=== PATIENT | male | born 1985 | race Caucasian/White ===

== ENCOUNTER 2019-08-25 15:42 | Observation (INO) ==
[2019-08-25 16:25] LABS: Basophils # (auto) 0.03 K/uL (0-0.2); Basophils % (auto) 0.2 %; Eosinophils # (auto) 0.07 K/uL (0-0.5); Eosinophils % (auto) 0.4 %; Hematocrit (blood only) 47.5 % (42-52); Hemoglobin 16.6 g/dL (14.0-18.0); Immature Granulocytes # (auto) 0.05 K/uL (0.00-0.02); Immature Granulocytes % (auto) 0.3 %; Lymphocytes # (auto) 3.79 K/uL (1.2-3.4); Lymphocytes % (auto) 23.9 %; Mean Corpuscular Hemoglobin 31.1 pg (25-34); Mean Corpuscular Hgb Conc 34.9 g/dL (32-36); Mean Platelet Volume 9.1 fL (7.4-10.4); Monocytes # (auto) 1.22 K/uL (0.11-0.59); Monocytes % (auto) 7.7 %; Neutrophils # (auto) 10.68 K/uL (1.4-6.5); Neutrophils % (auto) 67.5 %; Platelet Count 298 K/uL (130-400); RDW Coefficient of Variation 12.9 % (11.5-14.5); RDW Standard Deviation 41.9 fL (36.4-46.3); Red Blood Count 5.34 M/uL (4.7-6.1); White Blood Count 15.84 K/uL (4.8-10.8)
[2019-08-25 16:48] LABS: Albumin Level 3.9 gm/dl (3.4-5.0); BUN Creatinine Ratio 17.4 (10-20); Calcium 9.2 mg/dl (8.5-10.1); Creatinine Clr Calc Pharmacy 119.7 ml/min; Est GFR (African American) 105.3; Est GFR (Non-African American) 90.9; Potassium 3.9 mmol/L (3.5-5.1)
[2019-08-25 16:51] LABS: Albumin Globulin Ratio 0.9 (0.9-2); Bilirubin,Total 0.8 mg/dl (0.2-1); Globulin 4.3 gm/dl (2.5-4.0); Total Protein 8.2 gm/dl (6.4-8.2)
[2019-08-25] MEDS ORDERED: IOVERSOL 100ml IV PRN (17:03)
--- NOTE | 2019-08-25 17:20 | CT Scan Report ---
CT abd pelvis IV con only CT DOSE: 1162.85 mGy.cm HISTORY: Pain. Mass. mid abdominal - hard mass, redness TECHNIQUE: Multiaxial CT images of the abdomen and pelvis were performed following the use of intrave nous contrast. A dose lowering technique was utilized adhering to the principles of ALARA. COMPARISON STUDY: None. FINDINGS: Anterior ventral periumbilical hernia. This is a maximum transaxial measurements of 4.2 cm. There is contained fat. Fat demonstrates increased density with evidence for surrounding infiltrative change of the surrounding subcutaneous fat. There this is evidence of an incarcerated fat containing hernia. No definite bowel containment. Bowel pattern overall is nonobstructive. Liver spleen and pancreas are unremarkable. Kidneys negative for hydronephrosis. The appendix is norm al. No significant abdominal pelvic or inguinal adenopathy. IMPRESSION: 1. Periumbilical incarcerated fat containing hernia. 2. Surrounding cellulitis and/or reactive infiltrative change of the subcutaneous fat. 3. No evidence for drainable abscess or collection. 4. Study is otherwise unremarkable. ACT 112: Negative or not required by law. The above report was generated using voice recognition software. It may contain grammatical, syntax or spelling errors. Electronically signed by: Viktor Cabrera M.D. 08/25/2019 5:19 PM
[2019-08-25 17:26] LABS: Appearance Urine Clear (Clear); Bilirubin Urine Negative (Negative); Blood Urine Negative (Negative); Color Urine Dark Yellow; Glucose Urine UA Negative (Negative); Ketones Urine 1+ (Negative); Leukocyte Esterase Urine Negative (Negative); Nitrite Urine Negative (Negative); Protein Urine Negative (Negative); Specific Gravity Urine 1.029 (1.000-1.030); Urobilinogen Urine Negative (Negative)
[2019-08-25] MEDS ORDERED: PIPERACILLIN/TAZOBACTAM 3.375 GM in DEXTROSE 5% 100 ML/100 ML BAG IV STA (17:29)
[2019-08-25] MEDS ORDERED: PIPERACILL/TAZOBAC CONSULT ACTIVE PRN (17:29)
--- NOTE | 2019-08-25 18:26 | Surgery Consultation ---
Date of Consultation August 25, 2019 Assessment & Plan (1) Incarcerated ventral hernia: pt is a 34 year-old male who presents to ER with one day history abdominal pain, IMP: incarcerated ventral hernia with cellulitis PLan, I recommend to do open repair incarcerated ventral hernia, possible mesh, D/W benefits, risks and alternatives of the surgery, the risks - infection, bleeding, hernia recurrence, complications relate to mesh, may need bowel resection, pt understood, he agrees with the surgery, I answered all questions, pre-op antibiotic (2) Cellulitis: History of Present Illness History of Present Illness CC: abdominal pain HPI: pt is a 34 year-old male who presents to ER with one day history acute abdominal pain with bulging on abdominal wall, pt had ventral hernia about 10 years, the hernia is getting bigger, now pt has skin redness around the hernia, with bulging is not reducible, the pain is 5/10, pt denies fever, no nausea, no vomiting, Allergies Allergy/AdvReac Type Severity Reaction Status Date / Time No Known Allergies Allergy Unverified 08/25/19 16:35 Home Medications Home Medications Medication Instructions Recorded Confirmed Type No Known Home Medications 08/25/19 08/25/19 History Patient History Social History Feels Safe at Home: Yes Smoking Status: Current every day smoker Review of Systems Review of Systems: All systems reviewed & are unremarkable except as noted in HPI & below Constitutional: as per Subjective / HPI obesity Eyes: as per Subjective / HPI Ear, Nose, Mouth, Throat: as per Subjective / HPI Respiratory: as per Subjective / HPI Cardiovascular: as per Subjective / HPI Gastrointestinal: as per Subjective / HPI Genitourinary: + as per Subjective / HPI Musculoskeletal: as per Subjective / HPI Integumentary: as per Subjective / HPI Neurologic: as per Subjective / HPI Psychiatric: as per Subjective / HPI Endocrine: as per Subjective / HPI Hematologic / Lymphatic: as per Subjective / HPI Physical Exam Constitutional: WD/WN, vitals as above well developed and well nourished Eyes: PERRL, conjunctivae normal, anicteric sclerae ENMT: external ear and nose normal, oropharynx normal Neck: trachea midline, no thyromegaly Respiratory: normal respiratory effort, lungs clear to auscultation normal respiratory effort Cardiovascular: RRR, no murmur, no edema Rate/Rhythm: regular rate and regular rhythm Heart Sounds: normal S1 and normal S2 Gastrointestinal (Abdomen): tenderness with bulging just above the umbilical, with redness cellulitis, size about [id number], BS +, the hernia is not reducible Musculoskeletal: no cyanosis or clubbing, extremities motor strength 5/5 Skin: abdominal wall skin is redness, size [id number] Neurologic: patellar DTR's 2+ bilat, sensation intact Psychiatric: Orientation: alert and oriented x 3 Results & Data Vital Signs (Past 12 Hours) Vital Signs Temp Pulse Pulse Resp BP BP Pulse Ox 08/25/19 17:43 110 H 20 124/84 96 08/25/19 15:50 37.5 C 112 H 20 140/81 96 Laboratory Results Abnormal lab results 08/25/19 08/25/19 08/25/19 Range/Units 16:16 16:16 17:12 WBC 15.84 H (4.8-10.8) K/uL Neut # (Auto) 10.68 H (1.4-6.5) K/uL Lymph # (Auto) 3.79 H (1.2-3.4) K/uL [place] # (Auto) 1.22 H (0.11-0.59) K/uL Immature Gran # (Auto) 0.05 H (0.00-0.02) K/uL Globulin 4.3 H (2.5-4.0) gm/dl Urine Ketones 1+ H (Negative) Diagnostic Findings CT abd pelvis IV con only CT DOSE: 1162.85 mGy.cm HISTORY: Pain. Mass. mid abdominal - hard mass, redness TECHNIQUE: Multiaxial CT images of the abdomen and pelvis were performed following the use of intravenous contrast. A dose lowering technique was utilized adhering to the principles of ALARA. COMPARISON STUDY: None. FINDINGS: Anterior ventral periumbilical hernia. This is a maximum transaxial measurements of 4.2 cm. There is contained fat. Fat demonstrates increased density with evidence for surrounding infiltrative change of the surrounding subcutaneous fat. There this is evidence of an incarcerated fat containing hernia. No definite bowel containment. Bowel pattern overall is nonobstructive. Liver spleen and pancreas are unremarkable. Kidneys negative for hydronephrosis. The appendix is normal. No significant abdominal pelvic or inguinal adenopathy. IMPRESSION: 1. Periumbilical incarcerated fat containing hernia. 2. Surrounding cellulitis and/or reactive infiltrative change of the subcutaneous fat. 3. No evidence for drainable abscess or collection. 4. Study is otherwise unremarkable.
[2019-08-25] MEDS ORDERED: CEFAZOLIN 2000MG 2,000 MG/15 ML SYR IV ONE (18:30)
--- NOTE | 2019-08-25 18:30 | History & Physical Bridge Note ---
Date of Service August 25, 2019 History & Physical Bridge Note I have examined the patient, reviewed the History & Physical and in the interval since the performance of the History & Physical I have noted the following changes of clinical significance: no changes noted
[2019-08-25] MEDS ORDERED: LIDOCAINE HCL 1% 20 ML VIAL ONE (18:33)
[2019-08-25] MEDS ORDERED: BUPIVACAINE 0.5 % 5 MG/1 ML MPF 30ML VIAL ONE (18:33)
[2019-08-25] MEDS ORDERED: BACITRACIN OINT 15 GM TUBE ONE (18:33)
[2019-08-25] MEDS ORDERED: LIDOCAINE HCL 2% 2 ML VIAL/AMP(20MG/ML) INFIL ONE (21:22)
[2019-08-25] MEDS ORDERED: PROPOFOL IV EMULSION 10 MG/ML 20 ML VIAL IV ONE ×2 (21:22→22:00)
[2019-08-25] MEDS ORDERED: ROCURONIUM BROMIDE 10 MG/ML 5 ML VIAL IV ONE (21:22)
[2019-08-25] MEDS ORDERED: NEOSTIGMINE METHYLSULFATE 5 MG/5 ML SYR ONE (21:22)
[2019-08-25] MEDS ORDERED: SUCCINYLCHOLINE CHLORIDE 20 MG/ML 10 ML VIAL IV ONE (21:22)
[2019-08-25] MEDS ORDERED: GLYCOPYRROLATE 0.2 MG/ML VIAL ONE (21:22)
[2019-08-25] MEDS ORDERED: fentaNYL citrate 100 MCG/2 ML VIAL ONE (21:22)
[2019-08-25] MEDS ORDERED: DEXAMETHASONE SOD INJ 4 MG/ML VIAL ONE (21:22)
[2019-08-25] MEDS ORDERED: ONDANSETRON INJ 2 MG/ML 2 ML VIAL ONE (21:22)
[2019-08-25] MEDS ORDERED: MIDAZOLAM HCL 1 MG/ML 2ML VIAL ONE (21:22)
--- NOTE | 2019-08-25 21:40 | Anesthesiology Consultation ---
Date of Service August 25, 2019 Assessment & Plan (1) Encounter for pre-operative examination: Chart Review Chart Review: Acceptable Risk for Surgery and Patient NOT seen in Pre Admission Testing Consults Requested none ASA [id number] Proposed Anesthesia Anesthesia Type: General Risk / Benefits Reviewed With: PT / POA / Parent / Guardian, Accepts Plan and I nformed Consent Obtained History Surgery Operation Date: 08/25/19 19:15 Proposed Procedures p Ventral Hernia Repair - Sabina Keita MD Height/Weight Height: 5 ft 9 in Weight: 111.5 kg Allergies Allergy/AdvReac Type Severity Reaction Status Date / Time No Known Allergies Allergy Unverified 08/25/19 16:35 Medications Home Medications Medication Instructions Recorded Confirmed Last Taken No Known Home Medications 08/25/19 08/25/19 Unknown Active Medications Generic Name Dose Route Start Last Admin Trade Name Freq PRN Reason Stop Dose Admin Ioversol 90 ml 08/25/19 17:03 08/25/19 17:04 Optiray 320 100ml IV 08/29/19 17:02 90 ml ONCE PRN Administration Interaction Checking NPO Date Last Intake of Fluids: 08/25/19 Time Last Intake of Fluids: 15:50 Last Intake of Fluids Comment: sips of water Date Last Intake of Solids: 08/25/19 Time Last Intake of Solids: 12:30 Last Intake of Solids Comment: wrap from sheetz Exercise / Class Metabolic Activity II 4-5 Yardwork/Stairs/Walk up hill Past Anesthesia History No Hx of Anesthesia Complications and No Family Hx of Anesthesia Complications History of PONV No Hx of PONV and No Hx of Motion Sickness Social History Smoking Status: Current every day smoker Physical Exam Vital Signs Last Vital Signs Temp 37.3 C 08/25/19 20:03 Pulse 103 H 08/25/19 19:11 Resp 20 08/25/19 19:11 BP 121/81 08/25/19 19:11 Pulse Ox 97 08/25/19 19:01 ENMT Mouth: no dentition abnormality Thyromental Distance: > or= 3.5 Finger Breadths Mallampati Class: II Neck normal visual inspection Respiratory normal respiratory effort Auscultation: lungs clear to auscultation bilaterally Cardiovascular Rate/Rhythm: regular rate and regular rhythm Psychiatric Orientation: alert Testing Laboratory Results 08/25/19 16:16 08/25/19 16:16 Urine Color Dark Yellow 08/25/19 17:12 Urine Appearance Clear (Clear) 08/25/19 17:12 Urine pH 6.0 (4.5-7.5) 08/25/19 17:12 Ur Specific [place] 1.029 (1.000-1.030) 08/25/19 17:12 Urine Protein Negative (Negative) 08/25/19 17:12 Urine Glucose (UA) Negative (Negative) 08/25/19 17:12 Urine Ketones 1+ (Negative) H 08/25/19 17:12 Urine Nitrite Negative (Negative) 08/25/19 17:12 Ur Leukocyte Esterase Negative (Negative) 08/25/19 17:12
[2019-08-25] MEDS ORDERED: fentaNYL citrate 100 MCG/2 ML VIAL IV PRN (23:11)
[2019-08-25] MEDS ORDERED: ONDANSETRON INJ 2 MG/ML 2 ML VIAL IV PRN ×2 (23:11→23:15)
[2019-08-25] MEDS ORDERED: HYDROmorphone INJ 2 MG/ML SYR/VIAL IV PRN (23:11)
[2019-08-25] MEDS ORDERED: ATROPINE SULFATE 0.1 MG/ML 10ML SYR IV PRN (23:11)
[2019-08-25] MEDS ORDERED: ePHEDrine sulfate 50 MG/ML AMP IV PRN (23:11)
[2019-08-25] MEDS ORDERED: PROMETHAZINE HCL 6.25 MG in SODIUM CHLORIDE 0.9% 50 ML IV PRN (23:11)
--- NOTE | 2019-08-25 23:13 | Post Operative Brief Note ---
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
--- NOTE | 2019-08-25 23:31 | Anesthesiology Progress Note ---
Date of Service August 25, 2019 Anesthesia Post Procedure Vital Signs Vital Signs: Temp Pulse Pulse Pulse Resp BP BP 08/25/19 20:03 37.3 C 08/25/19 19:11 38.1 C H 103 H 20 121/81 08/25/19 19:01 98 H 16 134/81 08/25/19 19:00 98 H 16 134/81 08/25/19 17:43 110 H 20 124/84 08/25/19 15:50 37.5 C 112 H 20 140/81 Pulse Ox 08/25/19 20:03 08/25/19 19:11 08/25/19 19:01 97 08/25/19 19:00 97 08/25/19 17:43 96 08/25/19 15:50 96 Pain Intensity Abdomen: Pain Intensity: 1 Transfer of Care Handoff Completed per policy Notes Mental Status: alert / awake / arousable Patient Amnestic to Procedure: Yes Nausea / Vomiting: adequately controlled Pain: adequately controlled Airway Patency, RR, SpO2: stable & adequate BP & HR: stable & adequate Hydration State: stable & adequate Anesthetic Complications: no major complications apparent
--- NOTE | 2019-08-25 23:57 | Emergency Department Note ---
History of Present Illness General Chief complaint: Abdominal Pain Stated complaint: ABD REDNESS - HERNIA? Time Seen by Provider: 08/25/19 15:54 Source: patient Mode of arrival: ambulatory Limitations: no limitations History of Present Illness Maximum Pain Intensity: 5 This patient is a 34-year-old male who presents to the emergency department for evaluation of abdominal redness/skin changes. Patient reports that he has had a hernia for the past 2 years. He reports that he has pain in it occasionally but has not had this evaluated for treatment. He states that last night, he stood up and the area became hard to touch. His girlfriend looked at the area and noticed that it was red. He reports that he is not having any pain or other symptoms at this time. No nausea or vomiting. He denies any other medical problems. 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 Beliefs That Will Affect Care: None Current Living Situation: Alone Other Information That Helps Us Care for You: No Feels Safe at Home: Yes Safety Concerns: Feels Safe At This Time Smoking Status: Current every day smoker Tobacco Type: cigarettes ; Cigarettes Per Day: 1 pack ; Do You Dip or Chew Tobacco: No ; Second Hand Exposure: Yes ; Tobacco Cessation Education Requested by Patient: No Hx Alcohol Use: Yes Alcohol type: hard liquor Hx Substance Use: No Review of Systems A total of 10 systems reviewed and were otherwise negative Physical Exam Vital Signs Vital Signs - 24 hr 08/25/19 15:50 08/25/19 17:43 08/25/19 19:00 Temperature 37.5 C Temperature Source Oral Pulse Rate 112 H Pulse Rate [Left Finger] Pulse Rate [Radial] 110 H 98 H Pulse Rhythm [Left Finger] Pulse Rhythm [Radial] Regular Regular Pulse Strength [Left Finger] Respiratory Rate 20 20 16 Respiratory Effort / Characteristics Non-Labored Spontaneous Non-Labored Spontaneous Non-Labored Spontaneous Respiratory Depth Normal Normal Normal Respiratory Pattern Regular Regular Regular Blood Pressure 140/81 Blood Pressure [Right Arm] 124/84 134/81 Blood Pressure Mean 100 Blood Pressure Mean [Right Arm] 97 98 Blood Pressure Position [Right Arm] Pulse Oximetry 96 96 97 Oxygen Delivery Method Room Air Room Air Room Air Oxygen Flow Rate Sepsis Recent Fever Within 48 Hours No Sepsis New/Unexplained Change in Mental Status No Sepsis Action Taken by Nursing No Action Required 08/25/19 19:01 08/25/19 19:11 08/25/19 20:03 Temperature 38.1 C H 37.3 C Temperature Source Oral Oral Pulse Rate 98 H Pulse Rate [Left Finger] 103 H Pulse Rate [Radial] Pulse Rhythm [Left Finger] Pulse Rhythm [Radial] Pulse Strength [Left Finger] Normal Respiratory Rate 16 20 Respiratory Effort / Characteristics Non-Labored Spontaneous Respiratory Depth Normal Respiratory Pattern Regular Blood Pressure 134/81 Blood Pressure [Right Arm] 121/81 Blood Pressure Mean Blood Pressure Mean [Right Arm] 94 Blood Pressure Position [Right Arm] Sitting Pulse Oximetry 97 Oxygen Delivery Method Room Air Room Air Oxygen Flow Rate Sepsis Recent Fever Within 48 Hours Sepsis New/Unexplained Change in Mental Status Sepsis Action Taken by Nursing 08/25/19 23:27 08/25/19 23:38 08/25/19 23:47 Temperature 36.2 C L 36.0 C L 36.4 C L Temperature Source Temporal Artery Scan Temporal Artery Scan Temporal Artery Scan Pulse Rate Pulse Rate [Left Finger] 93 H 90 87 Pulse Rate [Radial] Pulse Rhythm [Left Finger] Regular Regular Regular Pulse Rhythm [Radial] Pulse Strength [Left Finger] Normal Normal Normal Respiratory Rate 16 16 14 Respiratory Effort / Characteristics Non-Labored Non-Labored Non-Labored Respiratory Depth Normal Normal Normal Respiratory Pattern Blood Pressure Blood Pressure [Right Arm] 117/77 122/65 125/68 Blood Pressure Mean Blood Pressure Mean [Right Arm] 90 84 87 Blood Pressure Position [Right Arm] Lying Lying Lying Pulse Oximetry 95 95 96 Oxygen Delivery Method Nasal Cannula Nasal Cannula Nasal Cannula Oxygen Flow Rate 4 2 2 Sepsis Recent Fever Within 48 Hours Sepsis New/Unexplained Change in Mental Status Sepsis Action Taken by Nursing VITALS: Vitals are noted on the nurse's note and reviewed by myself. Vital signs stable. GENERAL: This is a 34-year-old male, in no acute distress, nondiaphoretic, well- developed well-nourished. SKIN: There is a large area of erythema overlying the mid abdomen. EARS: External auditory canals clear, tympanic membranes pearly [place] without erythema or effusion bilaterally. EYES: Pupils equal round and reactive to light and accommodation. MOUTH: Mucous membranes moist. Tonsils are not enlarged. Pharynx without erythema or exudate. NECK: Supple without nuchal rigidity. No lymphadenopathy. HEART: Regular rate and rhythm without murmurs gallops or rubs. LUNGS: Clear to auscultation bilaterally without wheezes, rales or rhonchi. ABDOMEN: Positive bowel sounds x 4. Abdomen is soft and nontender to palpation. There is a hard mass superior to the umbilicus which is nontender to palpation. There is erythema overlying this area and the surrounding skin. No guarding or rebound tenderness. NEURO: Patient was alert and oriented to person place and time. Course Consultations Consultation #1: Dr. Keita - general surgery Administered Medications Discontinued Medications Bacitracin (Bacitracin) Confirm Administered Dose 45 appln .ROUTE .STK-MED ONE Stop: 08/25/19 18:34 Last Admin: 08/25/19 23:08 Dose: 45 appln Documented by: [id number] Bupivacaine HCl (Marcaine 0.5% Mpf) Confirm Administered Dose 30 ml .ROUTE .STK- MED ONE Stop: 08/25/19 18:34 Last Admin: 08/25/19 22:45 Dose: 20 ml Documented by: [id number] Docusate Sodium (Colace) 100 mg PO DAILY LUZ Stop: 09/25/19 08:59 Last Admin: 08/26/19 09:40 Dose: 100 mg Documented by: [id number] Hydromorphone HCl (Dilaudid) 0.5 mg IV Q5M PRN PRN Reason: PACU Use Only-Pain Stop: 08/26/19 07:11 Last Admin: 08/25/19 23:41 Dose: 0.5 mg Documented by: [id number] Piperacillin Sod/Tazobactam (Sod 3.375 gm/ Dextrose) 100 ml in 115 mls @ 230 mls/hr IV NOW STA Stop: 08/25/19 17:58 Last Infusion: 08/25/19 18:39 Dose: 0 mls/hr Documented by: [id number] Admin: 08/25/19 17:53 Dose: 230 mls/hr Documented by: [id number] Cefazolin Sodium (Ancef 2000mg) 2,000 mg in 15 mls @ 3.75 mls/min IV PREOP ONE Stop: 08/25/19 18:33 Last Admin: 08/25/19 21:49 Dose: 3.75 mls/min Documented by: [id number] Lactated Ringer's (Lr) 1,000 mls @ 80 mls/hr IV .[id number] LUZ Stop: 09/25/19 00:12 Last Infusion: 08/26/19 11:35 Dose: 0 mls/hr Documented by: [id number] Admin: 08/26/19 00:56 Dose: 80 mls/hr Documented by: [id number] Piperacillin Sod/Tazobactam (Sod 4.5 gm/ Dextrose) 120 mls @ 200 mls/hr IV NOW ONE; Protocol Stop: 08/26/19 01:35 Last Infusion: 08/26/19 01:32 Dose: 0 mls/hr Documented by: [id number] Admin: 08/26/19 00:56 Dose: 200 mls/hr Documented by: [id number] Piperacillin Sod/Tazobactam (Sod 4.5 gm/ Dextrose) 120 mls @ 30 mls/hr IV Q8H [facility]; Protocol Stop: 09/05/19 05:59 Last Infusion: 08/26/19 08:55 Dose: 0 mls/hr Documented by: [id number] Admin: 08/26/19 05:17 Dose: 30 mls/hr Documented by: [id number] Ioversol (Optiray 320 100ml) 90 ml IV ONCE PRN PRN Reason: Interaction Checking Stop: 08/29/19 17:02 Last Admin: 08/25/19 17:04 Dose: 90 ml Documented by: [id number] Lidocaine HCl (Xylocaine 1% (Local)) Confirm Administered Dose 20 ml .ROUTE .STK-MED ONE Stop: 08/25/19 18:34 Last Admin: 08/25/19 22:45 Dose: 20 ml Documented by: [id number] Medical Decision Making Differential Diagnosis Differential diagnosis includes appendicitis, diverticulitis, bowel obstruction, inflammatory bowel disease, renal colic, PUD, biliary pathology, pancreatitis, mesenteric ischemia, aortic pathology, infection, genitourinary, UTI, perforated viscus, among others. Home Medications Current Medication List: was personally reviewed by me Laboratory Data Attestation: I reviewed the patient's lab results. Result diagrams: 08/26/19 05:24 08/26/19 05:24 Lab Results 08/25/19 08/25/19 08/25/19 Range/Units 16:16 16:16 17:12 WBC 15.84 H (4.8-10.8) K/uL RBC 5.34 (4.7-6.1) M/uL Hgb 16.6 (14.0-18.0) g/dL Hct 47.5 (42-52) % MCV 89.0 (80-100) fL MCH 31.1 (25-34) pg MCHC 34.9 (32-36) g/dL RDW Std Deviation 41.9 (36.4-46.3) fL RDW Coeff of Karen 12.9 (11.5-14.5) % Plt Count 298 (130-400) K/uL MPV 9.1 (7.4-10.4) fL Immature Gran % (Auto) 0.3 % Neut % (Auto) 67.5 % Lymph % (Auto) 23.9 % [place] % (Auto) 7.7 % Eos % (Auto) 0.4 % Baso % (Auto) 0.2 % Neut # (Auto) 10.68 H (1.4-6.5) K/uL Lymph # (Auto) 3.79 H (1.2-3.4) K/uL [place] # (Auto) 1.22 H (0.11-0.59) K/uL Eos # (Auto) 0.07 (0-0.5) K/uL Baso # (Auto) 0.03 (0-0.2) K/uL Immature Gran # (Auto) 0.05 H (0.00-0.02) K/uL Sodium 139 (136-145) mmol/L Potassium 3.9 (3.5-5.1) mmol/L Chloride 106 (98-107) mmol/L Carbon Dioxide 28 (21-32) mmol/L Anion Gap 5.0 (3-11) BUN 18 (7-18) mg/dl Creatinine 1.05 (0.6-1.4) mg/dl Est Cr Clr Drug Dosing 119.7 ml/min Est GFR ( Amer) 105.3 Est GFR (Non-Af Amer) 90.9 BUN/Creatinine Ratio 17.4 (10-20) Glucose 95 (70-99) mg/dl Calcium 9.2 (8.5-10.1) mg/dl Total Bilirubin 0.8 (0.2-1) mg/dl AST 20 (15-37) U/L ALT 44 (12-78) U/L Alkaline Phosphatase 92 (45-117) U/L Total Protein 8.2 (6.4-8.2) gm/dl Albumin 3.9 (3.4-5.0) gm/dl Globulin 4.3 H (2.5-4.0) gm/dl Albumin/Globulin Ratio 0.9 (0.9-2) Urine Color Dark Yellow Urine Appearance Clear (Clear) Urine pH 6.0 (4.5-7.5) Ur Specific [place] 1.029 (1.000-1.030) Urine Protein Negative (Negative) Urine Glucose (UA) Negative (Negative) Urine Ketones 1+ H (Negative) Urine Blood Negative (Negative) Urine Nitrite Negative (Negative) Urine Bilirubin Negative (Negative) Urine Urobilinogen Negative (Negative) Ur Leukocyte Esterase Negative (Negative) Imaging Data Attestation: I personally reviewed and interpreted this imaging study as follows: Radiologist's Impression: CT abd pelvis IV con only CT DOSE: 1162.85 mGy.cm HISTORY: Pain. Mass. mid abdominal - hard mass, redness TECHNIQUE: Multiaxial CT images of the abdomen and pelvis were performed following the use of intravenous contrast. A dose lowering technique was utilized adhering to the principles of ALARA. COMPARISON STUDY: None. FINDINGS: Anterior ventral periumbilical hernia. This is a maximum transaxial measurements of 4.2 cm. There is contained fat. Fat demonstrates increased density with evidence for surrounding infiltrative change of the surrounding subcutaneous fat. There this is evidence of an incarcerated fat containing hernia. No definite bowel containment. Bowel pattern overall is nonobstructive. Liver spleen and pancreas are unremarkable. Kidneys negative for hydronephrosis. The appendix is normal. No significant abdominal pelvic or inguinal adenopathy. IMPRESSION: 1. Periumbilical incarcerated fat containing hernia. 2. Surrounding cellulitis and/or reactive infiltrative change of the subcutaneous fat. 3. No evidence for drainable abscess or collection. 4. Study is otherwise unremarkable. MDM Narrative The patient is a 34-year-old male who presents today complaining of a hard mass on his abdomen and surrounding erythema. Labs revealed leukocytosis of 15,000. CT of the abdomen/pelvis reveals an incarcerated fat-containing periumbilical hernia. General surgery was consulted. Patient was given a dose of Zosyn given surrounding cellulitis. Patient will be taken to the OR for operative management. Impression & Plan Incarcerated ventral hernia, Abdominal wall cellulitis Discharge Plan Visit Data *Final* Discharge Date/Time: 08/25/19 19:01 Chief Complaint: Abdominal Pain Stated Complaint: ABD REDNESS - HERNIA? ED Provider: Shannon Chapman ED Midlevel Provider: Peg Coles Discharge Problem: Incarcerated ventral hernia, Abdominal wall cellulitis Patient Disposition: Admitted As Inpatient Discharge Instructions Interventions: ED Discharge Assessment Last Done: 08/25/19 19:01
[2019-08-26] MEDS ORDERED: LACTATED RINGER'S 1,000 ML IV SCH (00:13)
[2019-08-26] MEDS ORDERED: HYDROmorphone INJ 1 MG/ML SYRINGE IV PRN (00:13)
[2019-08-26] MEDS ORDERED: OXYCODONE/ACETAMINOPHEN 5mg/325mg TAB PO PRN (00:13)
[2019-08-26] MEDS ORDERED: PIPERACILL/TAZOBAC CONSULT ACTIVE PRN (00:13)
[2019-08-26] MEDS ORDERED: PIPERACILLIN/TAZOBACTAM 3.375 GM in DEXTROSE 5% 100 ML IV SCH (01:00)
[2019-08-26] MEDS ORDERED: PIPERACILLIN/TAZOBACTAM 4.5 GM in DEXTROSE 5% 100 ML IV ONE (01:00)
[2019-08-26] MEDS ORDERED: PIPERACILLIN/TAZOBACTAM 4.5 GM in DEXTROSE 5% 100 ML IV SCH (06:00)
[2019-08-26 06:01] LABS: Basophils # (auto) 0.01 K/uL (0-0.2); Basophils % (auto) 0.1 %; Hematocrit (blood only) 46.5 % (42-52); Hemoglobin 15.6 g/dL (14.0-18.0); Immature Granulocytes # (auto) 0.06 K/uL (0.00-0.02); Immature Granulocytes % (auto) 0.3 %; Lymphocytes # (auto) 1.53 K/uL (1.2-3.4); Lymphocytes % (auto) 7.9 %; Mean Corpuscular Hemoglobin 30.5 pg (25-34); Mean Corpuscular Hgb Conc 33.5 g/dL (32-36); Mean Platelet Volume 9.4 fL (7.4-10.4); Monocytes # (auto) 1.01 K/uL (0.11-0.59); Monocytes % (auto) 5.2 %; Neutrophils # (auto) 16.88 K/uL (1.4-6.5); Neutrophils % (auto) 86.5 %; Platelet Count 283 K/uL (130-400); RDW Standard Deviation 43.3 fL (36.4-46.3); Red Blood Count 5.11 M/uL (4.7-6.1); White Blood Count 19.49 K/uL (4.8-10.8)
[2019-08-26 06:37] LABS: Albumin Level 3.1 gm/dl (3.4-5.0); BUN Creatinine Ratio 14.8 (10-20); Calcium 8.6 mg/dl (8.5-10.1); Creatinine Clr Calc Pharmacy 132.3 ml/min; Est GFR (African American) 118.9; Est GFR (Non-African American) 102.6; Potassium 4.1 mmol/L (3.5-5.1)
[2019-08-26 06:39] LABS: Albumin Globulin Ratio 0.7 (0.9-2); Globulin 4.2 gm/dl (2.5-4.0); Total Protein 7.3 gm/dl (6.4-8.2)
--- NOTE | 2019-08-26 06:55 | Operative Report (OR) ---
DATE OF OPERATION: 08/25/2019 PREOPERATIVE DIAGNOSIS: Incarcerated ventral hernia with cellulitis. POSTOPERATIVE DIAGNOSIS: Incarcerated ventral hernia with cellulitis. PROCEDURE: Open repair of incarcerated ventral hernia. SURGEON: Sabina Keita MD. ANESTHESIA: General. ESTIMATED BLOOD LOSS: About 20 mL. FINDINGS: An incarcerated ventral hernia x3, each hernia size about 1.5 x 1.5 cm, hernia sac content infarction of fat tissue with cellulitis. COMPLICATIONS: None. INDICATIONS FOR THE PROCEDURE: This is a 34-adria-old gentleman who presented with 1 day of acute abdominal pain with redness, bulging on the abdominal wall and the patient had a ventral hernia in the past as a diagnosis, the patient had a CT scan diagnosis of incarcerated ventral hernia with cellulitis. I recommended to do the open repair of incarcerated ventral hernia, possible mesh. I did talk to the patient about the benefit, risk, alternate procedure. I indicated the risks may include but not limited such as bleeding, infection, hernia recurrence, seroma, injury to the bowel, complication related to mesh. The patient understands. He signed informed consent and I answered all questions. DETAILS OF PROCEDURE: We brought the patient to the OR, put the patient in the supine position. The patient received SCD on bilateral legs to prevent DVT. Also, patient received 2 grams Ancef IV for prophylactic antibiotic. The patient received general anesthesia without difficulties. Abdomen was prepped and draped in routine sterile fashion. After timeout, we reexamined the patient. The patient had cellulitis around the umbilical area and bulging just above umbilicus, significantly hard, cannot reduce, confirmed diagnosis of incarcerated ventral hernia. I then made a transverse incision and then mobilized the subcutaneous layer. Then, we found the patient had three incarcerated hernias, the size about 1.5 x 1.5 cm each, and we found one was an incarcerated ventral hernia. The hernia sac content is infarcted fat tissue. Once we opened the hernia sac, we resected the infarcted fat tissue because the infarcted fat tissue black color. Hemostasis was obtained. Then another two small hernia, we reduced all hernia back to abdominal cavity. Once we make the 3 hernias open, combine one hernia and we found patient had a significant cellulitis, I tried to avoid using mesh, I decided to use 0 Ethibond [id number] interruptedly closed the hernia. The sutures tied, no tension, the hernia closed nicely. Hemostasis obtained. Now closed the subcutaneous layer by using 2-0 Vicryl continuous running, closed skin by using staple. Then we put the dressing on. The patient tolerated the procedure well. All instrument, needle and sponge count were correct x2 at the end of the case. The patient transferred to recovery room in stable condition. Also, we resected all the hernia sac and fat infarction tissue and all sent to pathology. I attest to the content of the Intraoperative Record and any orders documented therein. Any exceptions are noted below. ZORAIDA
[2019-08-26] MEDS ORDERED: DOCUSATE SODIUM 100 MG CAP PO SCH (09:00)
--- NOTE | 2019-08-26 11:28 | Surgery Progress Note ---
Date of Service August 26, 2019 Assessment & Plan (1) Incarcerated ventral hernia: POD # 1 s/p open repair of incarcerated ventral hernia x 3 without mesh given cellulitis -avss - leukocytosis of 19K likely postop and due to cellulitis - minimal postop pain - tolerating diet Plan: Discharge home today discharge instructions reviewed Rx for Percocet prn severe pain Rx for Keflex for 7 days given cellulitis f/u surgery office in 1-2 weeks Abdominal binder to go home with work not given with restrictions (2) Cellulitis: stable compared to preop home with oral abx for 7 days plan as above Dr. Keita has seen and examined pt, agrees with above. Subjective feeling good, soreness at incision site with movement no n/v tolerated diet no fevers or chills Physical Exam Constitutional: WD/WN, vitals as above no acute distress and not ill appearing Gastrointestinal (Abdomen): Inspection/Auscultation: abdomen normal to inspection; abdomen not distended Percussion/Palpation: abdomen soft; abdomen nontender, no guarding and abdomen not rigid Skin: no rashes, warm and dry + erythema (inferior to umbilicus, not increasing) and + incision (covered with dry dressing) Psychiatric: A+Ox3, euthymic affect Results & Data Vital Signs (Past 12 Hours) Vital Signs Temp Pulse Resp BP BP Pulse Ox 08/26/19 08:31 37.0 C 81 18 107/63 94 08/26/19 03:59 36.5 C 73 20 109/68 97 08/26/19 03:07 37 C 80 16 104/68 92 08/26/19 02:00 37 C 76 16 103/68 90 08/26/19 01:00 37.5 C 81 14 116/80 92 08/26/19 00:39 37.4 C 88 18 117/72 90 08/26/19 00:30 37.3 C 75 14 134/88 92 08/25/19 23:47 36.4 C L 87 14 125/68 96 08/25/19 23:38 36.0 C L 90 16 122/65 95 08/25/19 23:27 36.2 C L 93 H 16 117/77 95 Laboratory Results 08/26/19 08/26/19 08/25/19 Range/Units 05:24 05:24 17:12 WBC 19.49 H (4.8-10.8) K/uL RBC 5.11 (4.7-6.1) M/uL Hgb 15.6 (14.0-18.0) g/dL Hct 46.5 (42-52) % MCV 91.0 (80-100) fL MCH 30.5 (25-34) pg MCHC 33.5 (32-36) g/dL RDW Std Deviation 43.3 (36.4-46.3) fL RDW Coeff of Karen 13.0 (11.5-14.5) % Plt Count 283 (130-400) K/uL MPV 9.4 (7.4-10.4) fL Immature Gran % (Auto) 0.3 % Neut % (Auto) 86.5 % Lymph % (Auto) 7.9 % [place] % (Auto) 5.2 % Eos % (Auto) 0.0 % Baso % (Auto) 0.1 % Neut # (Auto) 16.88 H (1.4-6.5) K/uL Lymph # (Auto) 1.53 (1.2-3.4) K/uL [place] # (Auto) 1.01 H (0.11-0.59) K/uL Eos # (Auto) 0.00 (0-0.5) K/uL Baso # (Auto) 0.01 (0-0.2) K/uL Immature Gran # (Auto) 0.06 H (0.00-0.02) K/uL Sodium 138 (136-145) mmol/L Potassium 4.1 (3.5-5.1) mmol/L Chloride 107 (98-107) mmol/L Carbon Dioxide 27 (21-32) mmol/L Anion Gap 4.0 (3-11) BUN 14 (7-18) mg/dl Creatinine 0.95 (0.6-1.4) mg/dl Est Cr Clr Drug Dosing 132.3 ml/min Est GFR ( Amer) 118.9 Est GFR (Non-Af Amer) 102.6 BUN/Creatinine Ratio 14.8 (10-20) Glucose 131 H (70-99) mg/dl Calcium 8.6 (8.5-10.1) mg/dl Total Bilirubin 1.0 (0.2-1) mg/dl AST 16 (15-37) U/L ALT 32 (12-78) U/L Alkaline Phosphatase 81 (45-117) U/L Total Protein 7.3 (6.4-8.2) gm/dl Albumin 3.1 L (3.4-5.0) gm/dl Globulin 4.2 H (2.5-4.0) gm/dl Albumin/Globulin Ratio 0.7 L (0.9-2) Urine Color Dark Yellow Urine Appearance Clear (Clear) Urine pH 6.0 (4.5-7.5) Ur Specific [place] 1.029 (1.000-1.030) Urine Protein Negative (Negative) Urine Glucose (UA) Negative (Negative) Urine Ketones 1+ H (Negative) Urine Blood Negative (Negative) Urine Nitrite Negative (Negative) Urine Bilirubin Negative (Negative) Urine Urobilinogen Negative (Negative) Ur Leukocyte Esterase Negative (Negative) 08/25/19 08/25/19 Range/Units 16:16 16:16 WBC 15.84 H (4.8-10.8) K/uL RBC 5.34 (4.7-6.1) M/uL Hgb 16.6 (14.0-18.0) g/dL Hct 47.5 (42-52) % MCV 89.0 (80-100) fL MCH 31.1 (25-34) pg MCHC 34.9 (32-36) g/dL RDW Std Deviation 41.9 (36.4-46.3) fL RDW Coeff of Karen 12.9 (11.5-14.5) % Plt Count 298 (130-400) K/uL MPV 9.1 (7.4-10.4) fL Immature Gran % (Auto) 0.3 % Neut % (Auto) 67.5 % Lymph % (Auto) 23.9 % [place] % (Auto) 7.7 % Eos % (Auto) 0.4 % Baso % (Auto) 0.2 % Neut # (Auto) 10.68 H (1.4-6.5) K/uL Lymph # (Auto) 3.79 H (1.2-3.4) K/uL [place] # (Auto) 1.22 H (0.11-0.59) K/uL Eos # (Auto) 0.07 (0-0.5) K/uL Baso # (Auto) 0.03 (0-0.2) K/uL Immature Gran # (Auto) 0.05 H (0.00-0.02) K/uL Sodium 139 (136-145) mmol/L Potassium 3.9 (3.5-5.1) mmol/L Chloride 106 (98-107) mmol/L Carbon Dioxide 28 (21-32) mmol/L Anion Gap 5.0 (3-11) BUN 18 (7-18) mg/dl Creatinine 1.05 (0.6-1.4) mg/dl Est Cr Clr Drug Dosing 119.7 ml/min Est GFR ( Amer) 105.3 Est GFR (Non-Af Amer) 90.9 BUN/Creatinine Ratio 17.4 (10-20) Glucose 95 (70-99) mg/dl Calcium 9.2 (8.5-10.1) mg/dl Total Bilirubin 0.8 (0.2-1) mg/dl AST 20 (15-37) U/L ALT 44 (12-78) U/L Alkaline Phosphatase 92 (45-117) U/L Total Protein 8.2 (6.4-8.2) gm/dl Albumin 3.9 (3.4-5.0) gm/dl Globulin 4.3 H (2.5-4.0) gm/dl Albumin/Globulin Ratio 0.9 (0.9-2) Urine Color Urine Appearance (Clear) Urine pH (4.5-7.5) Ur Specific [place] (1.000-1.030) Urine Protein (Negative) Urine Glucose (UA) (Negative) Urine Ketones (Negative) Urine Blood (Negative) Urine Nitrite (Negative) Urine Bilirubin (Negative) Urine Urobilinogen (Negative) Ur Leukocyte Esterase (Negative)
--- NOTE | 2019-08-31 10:43 | Discharge Summary (DS) ---
ADMITTING DIAGNOSIS: Incarcerated ventral hernia. DISCHARGE DIAGNOSIS: Same. OPERATION: Open repair of incarcerated ventral hernia. SURGEON: Sabina Keita MD. DETAILS OF DISCHARGE SUMMARY: This is a 34-year-old gentleman who presented to ED with acute abdominal pain and CT scan diagnosis of incarcerated ventral hernia. Took the patient to the OR. We did open repair of incarcerated ventral hernia. The patient tolerated the procedure well. After procedure, the patient transferred to regular floor. The patient is doing fine. Good control of incision pain. The patient walked in the hallway and the patient tolerated the diet. PHYSICAL EXAMINATION: VITAL SIGNS: Temperature is 37, respiratory rate 18, heart rate 81, blood pressure 109/68, O2 saturation 94% on room air. GENERAL: The patient is alert, awake, oriented x3. HEENT: With normal limitation. NEUROLOGIC: Intact. NECK: No JVD. CHEST: Bilateral lung sounds clear. HEART: Normal S1, S2. No murmur. ABDOMEN: Soft, no significant tenderness. The incision site is intact and no redness, no drainage. Abdomen nondistended. Bowel sounds positive. EXTREMITIES: No edema. PLAN: The patient wanted to go home. We gave the patient postop care instruction. The patient understands. I will follow up with the patient in 2 weeks in the office.
== END 2019-08-26 12:19 | disposition home or self-care (01) ==
LOC: ED 15:42 → 3N 19:01 → OR 19:01